=== PATIENT | male | born 1980 | race Caucasian/White ===

== ENCOUNTER 2021-11-20 09:21 | Emergency (ER) | payer MEDICAID ==
[~2021-11-20] VITALS: Ht 182.9 cm; Wt 80.0 kg
[2021-11-20 09:27] VITALS: BP 143/89
[2021-11-20] MEDS ORDERED: HYDR-3972 PO (12:14)
== END 2021-11-20 12:37 | disposition home or self-care (01) ==
LOC: ER 09:21
DX: R22.41 Localized swelling, mass and lump, right lower limb (principal); S92.141D Displaced dome fracture of right talus, subsequent encounter for fracture with routine healing; Z98.890 Other specified postprocedural states; Z79.899 Other long term (current) drug therapy; V29.9XXD Motorcycle rider (driver) (passenger) injured in unspecified traffic accident, subsequent encounter
CPT/HCPCS: 29515; 73610; 99283

== ENCOUNTER 2024-04-21 14:20 | Inpatient (IN) | payer MEDICAID ==
[~2024-04-21] VITALS: Ht 182.9 cm; Wt 82.0 kg
[2024-04-21 15:20] LABS: BASOPHILS # (AUTO) 0.1 X10'3 (0-0.2); BASOPHILS % (AUTO) 0.7 % (0-1); EOSINOPHILS # (AUTO) 0.1 X10'3 (0-0.9); EOSINOPHILS % (AUTO) 0.6 % (0-6); HEMATOCRIT 47.7 % (42.0-52.0); HEMOGLOBIN 15.9 g/dl (14.0-17.9); LYMPHOCYTES # (AUTO) 1.7 X10'3 (1.1-4.8); LYMPHOCYTES % (AUTO) 12.6 % (21-51); MEAN CORPUSCULAR HEMOGLOBIN 28.2 PG (27.0-31.0); MEAN CORPUSCULAR HGB CONC 33.4 g/dL (33.0-36.5); MEAN CORPUSCULAR VOLUME 84.5 FL (78-98); MEAN PLATELET VOLUME 7.4 FL (7.4-10.4); MONOCYTES # (AUTO) 0.8 X10'3 (0-0.9); MONOCYTES % (AUTO) 5.7 % (2-12); NEUTROPHILS % (AUTO) 80.4 % (42-75); PLATELET COUNT 460 X10'3 (140-440); RED BLOOD COUNT 5.64 X10'6 (4.70-6.10); RED CELL DISTRIBUTION WIDTH 13.9 % (11.5-14.5); WHITE BLOOD COUNT 13.7 X10'3 (4.5-11.0)
[2024-04-21 15:38] LABS: ALANINE AMINOTRANSFERASE 33 U/L (12-78); ALBUMIN 3.7 G/DL (3.4-5.0); ALBUMIN/GLOBULIN RATIO 0.9 (1.1-1.5); ALKALINE PHOSPHATASE 112 IU/L (46-116); ANION GAP 9 (8-16); ASPARTATE AMINO TRANSFERASE 16 U/L (10-37); BILIRUBIN,TOTAL 0.5 MG/DL (0.1-1.0); BLOOD UREA NITROGEN 18 MG/DL (7-18); CALCIUM 9.2 MG/DL (8.5-10.1); CHLORIDE 101 MMOL/L (99-107); CREATININE 1.06 MG/DL (0.60-1.10); GLUCOSE 120 MG/DL (70-104); POTASSIUM 3.4 MMOL/L (3.5-5.1); SODIUM 136 MMOL/L (135-145); TOTAL CARBON DIOXIDE 26.4 MMOL/L (24-32); TOTAL PROTEIN 7.7 G/DL (6.4-8.2); eCRCL 101 ML/MIN; eGFR 77 ML/MIN
[2024-04-21 15:42] LABS: LIPASE 39 U/L (16-77)
[2024-04-21] MEDS: ondansetron/PF 4mg/2ml inj IV ONE (18:16)
[2024-04-21] MEDS: HYDROcodone/acetaminophen 10/325mg tab PO ONE (18:16)
[2024-04-21] MEDS: morphine 4 MG/ML inj SYRINge IV ONE (18:34)
[2024-04-21] MEDS: piperacillin/tazo 4.5gm/100ml 100 ML IV SCH (19:44)
[2024-04-21] MEDS ORDERED: potassium Cl 20 mEq SR tablet PO PRN ×2 (21:25)
[2024-04-21] MEDS ORDERED: magnesium Cl slow-release 64mg tablet PO PRN (21:25)
[2024-04-21] MEDS ORDERED: ondansetron/PF 4mg/2ml inj IV PRN (21:25)
[2024-04-21] MEDS ORDERED: magnesium sulf-water 4G/100mL 100 ML IV PRN (21:25)
[2024-04-21] MEDS ORDERED: potassium Cl 40MEQ/1/2NS 520ml 520 ML IV PRN (21:25)
[2024-04-21] MEDS ORDERED: magnesium sulf-water 2g/50mL 50 ML IV PRN (21:25)
[2024-04-21] MEDS: pantoprazole 40 MG vial IV ONE (22:01)
[2024-04-21] MEDS: normal saline 1000ml 1,000 ML IV SCH (22:01)
[2024-04-21] MEDS: ketorolac tromethamine 15mg/ml inj. IV ONE (22:01)
[2024-04-21 22:53] VITALS: BP 108/86; PULSE 63; RESP 16; TEMP 97.9; O2SAT 100
[2024-04-21] MEDS ORDERED: NO HOME MEDS (23:54)
[2024-04-22] VITALS (17 sets, daily range): BP systolic 110–142; BP diastolic 77–93; PULSE 68–93; RESP 14–23; TEMP 97.6–98.4; O2SAT 95–100
[2024-04-22] MEDS: piperacillin/tazo 3.375gm/50ml 50 ML IV SCH (06:10)
[2024-04-22 07:16] LABS: BASOPHILS # (AUTO) 0.1 X10'3 (0-0.2); BASOPHILS % (AUTO) 0.5 % (0-1); EOSINOPHILS # (AUTO) 0.2 X10'3 (0-0.9); EOSINOPHILS % (AUTO) 1.4 % (0-6); HEMATOCRIT 47.1 % (42.0-52.0); HEMOGLOBIN 15.7 g/dl (14.0-17.9); LYMPHOCYTES # (AUTO) 2.4 X10'3 (1.1-4.8); LYMPHOCYTES % (AUTO) 20.8 % (21-51); MEAN CORPUSCULAR HEMOGLOBIN 28.6 PG (27.0-31.0); MEAN CORPUSCULAR HGB CONC 33.4 g/dL (33.0-36.5); MEAN CORPUSCULAR VOLUME 85.6 FL (78-98); MEAN PLATELET VOLUME 7.5 FL (7.4-10.4); MONOCYTES # (AUTO) 1.2 X10'3 (0-0.9); MONOCYTES % (AUTO) 10.1 % (2-12); NEUTROPHILS # (AUTO) 7.8 X10'3 (1.8-7.7); NEUTROPHILS % (AUTO) 67.2 % (42-75); PLATELET COUNT 398 X10'3 (140-440); RED BLOOD COUNT 5.51 X10'6 (4.70-6.10); WHITE BLOOD COUNT 11.6 X10'3 (4.5-11.0)
[2024-04-22 07:30] LABS: ALANINE AMINOTRANSFERASE 82 U/L (12-78); ALBUMIN 3.1 G/DL (3.4-5.0); ALBUMIN/GLOBULIN RATIO 0.9 (1.1-1.5); ALKALINE PHOSPHATASE 117 IU/L (46-116); ANION GAP 5 (8-16); ASPARTATE AMINO TRANSFERASE 70 U/L (10-37); BILIRUBIN,TOTAL 1.1 MG/DL (0.1-1.0); BLOOD UREA NITROGEN 13 MG/DL (7-18); BUN/CREATININE RATIO 11.1 (10.0-20.0); CALCIUM 8.4 MG/DL (8.5-10.1); CHLORIDE 102 MMOL/L (99-107); CREATININE 1.17 MG/DL (0.60-1.10); GLUCOSE 96 MG/DL (70-104); MAGNESIUM 2.1 MG/DL (1.5-2.4); PHOSPHORUS 3.5 MG/DL (2.3-4.5); POTASSIUM 3.9 MMOL/L (3.5-5.1); SODIUM 137 MMOL/L (135-145); TOTAL CARBON DIOXIDE 30.5 MMOL/L (24-32); TOTAL PROTEIN 6.7 G/DL (6.4-8.2); eCRCL 91 ML/MIN; eGFR 69 ML/MIN
[2024-04-22 07:37] LABS: APTT 28 SECONDS (22-32); INR 1.1 INR; PROTHROMBIN TIME 11.1 SECONDS (9.0-12.0)
[2024-04-22] MEDS: K and/or MAG REPLACEMENT MC SCH (08:00)
[2024-04-22] MEDS: pantoprazole 40 MG vial IV SCH (08:22)
[2024-04-22] MEDS: acetaminophen 1,000mg/100ml IV 100 ML IV PRN (08:32)
[2024-04-22] MEDS ORDERED: morphine 2 MG/ML inj. syringe IV PRN (16:25)
[2024-04-22] MEDS ORDERED: proCHLORperazine 10 MG/2 ml inj IV PRN (16:25)
[2024-04-22] MEDS ORDERED: meperidine/PF 25mg/ml syringe IV PRN ×3 (16:25)
[2024-04-22] MEDS ORDERED: morphine 4 MG/ML inj SYRINge IV PRN (16:25)
[2024-04-22] MEDS ORDERED: ondansetron/PF 4mg/2ml inj IV PRN (16:25)
[2024-04-22] MEDS ORDERED: sevoflurane 250ml liquid IH ONE (16:43)
[2024-04-22] MEDS ORDERED: fentaNYL /PF 50mcg/ml 5ml ampule ONE (16:44)
[2024-04-22] MEDS ORDERED: midazolam 1 mg/ML 2ml injection ONE (16:44)
[2024-04-22] MEDS ORDERED: propofol inj 20 ML IV ONE (16:47)
[2024-04-22] MEDS ORDERED: rocuronium 10mg/ml inj IV ONE (16:47)
[2024-04-22] MEDS: BUPIVAcaine 2.5mg/ml inj 50ml vial (contains preservative) SQ ONE (17:14)
[2024-04-22] MEDS ORDERED: dexamethasone sod phosphate 4mg/ml inj. ONE (17:39)
[2024-04-22] MEDS ORDERED: ondansetron/PF 4mg/2ml inj ONE (17:40)
[2024-04-22] MEDS ORDERED: glycopyrrolate 0.2mg/ml inj ONE (17:56)
[2024-04-22] MEDS ORDERED: neostigmine methylsulfate 1 MG/ML 10ml vial ONE (17:56)
[2024-04-22] MEDS: ketorolac trometh. 30mg/ml inj. IV ONE (20:13)
[2024-04-22] MEDS: BUPIVAcaine 2.5mg/ml inj 50ml vial (contains preservative) ONE (21:00)
[2024-04-22] MEDS: ringers solution, lacted 1,000 ML IV SCH (21:00)
[2024-04-23 06:00] VITALS: BP 105/69; PULSE 78; RESP 16; TEMP 97.3; O2SAT 99
[2024-04-23 06:19] LABS: BASOPHILS % (AUTO) 0.3 % (0-1); EOSINOPHILS % (AUTO) 0 % (0-6); HEMATOCRIT 44.7 % (42.0-52.0); HEMOGLOBIN 14.5 g/dl (14.0-17.9); LYMPHOCYTES # (AUTO) 1.3 X10'3 (1.1-4.8); LYMPHOCYTES % (AUTO) 10.6 % (21-51); MEAN CORPUSCULAR HEMOGLOBIN 27.8 PG (27.0-31.0); MEAN CORPUSCULAR HGB CONC 32.5 g/dL (33.0-36.5); MEAN CORPUSCULAR VOLUME 85.6 FL (78-98); MEAN PLATELET VOLUME 7.6 FL (7.4-10.4); MONOCYTES # (AUTO) 0.7 X10'3 (0-0.9); MONOCYTES % (AUTO) 5.6 % (2-12); NEUTROPHILS % (AUTO) 83.5 % (42-75); PLATELET COUNT 454 X10'3 (140-440); RED BLOOD COUNT 5.22 X10'6 (4.70-6.10); RED CELL DISTRIBUTION WIDTH 13.8 % (11.5-14.5); WHITE BLOOD COUNT 11.9 X10'3 (4.5-11.0)
[2024-04-23 06:27] LABS: APTT 28 SECONDS (22-32); INR 1.1 INR; PROTHROMBIN TIME 11.4 SECONDS (9.0-12.0)
[2024-04-23 06:30] LABS: ALANINE AMINOTRANSFERASE 65 U/L (12-78); ALBUMIN 2.9 G/DL (3.4-5.0); ALBUMIN/GLOBULIN RATIO 0.8 (1.1-1.5); ALKALINE PHOSPHATASE 111 IU/L (46-116); ANION GAP 4 (8-16); ASPARTATE AMINO TRANSFERASE 33 U/L (10-37); BILIRUBIN,TOTAL 0.7 MG/DL (0.1-1.0); BLOOD UREA NITROGEN 8 MG/DL (7-18); BUN/CREATININE RATIO 7.4 (10.0-20.0); CALCIUM 8.3 MG/DL (8.5-10.1); CHLORIDE 103 MMOL/L (99-107); CREATININE 1.08 MG/DL (0.60-1.10); GLUCOSE 110 MG/DL (70-104); PHOSPHORUS 3.2 MG/DL (2.3-4.5); POTASSIUM 4.4 MMOL/L (3.5-5.1); SODIUM 137 MMOL/L (135-145); TOTAL PROTEIN 6.7 G/DL (6.4-8.2); eCRCL 99 ML/MIN; eGFR 75 ML/MIN
[2024-04-23 07:49] VITALS: BP 99/58; PULSE 87; RESP 15; TEMP 98.2; O2SAT 97
[2024-04-23 08:00] VITALS: RESP 16; O2SAT 98
[2024-04-23 10:00] VITALS: BP 119/68; PULSE 89; RESP 18; TEMP 98.7; O2SAT 99
[2024-04-23] MEDS ORDERED: HYDR-3972 PO (14:05)
[2024-04-23] MEDS ORDERED: LACT1CAP76 PO (14:05)
[2024-04-23] MEDS ORDERED: AMOX-580 PO (14:05)
== END 2024-04-23 17:11 | disposition home or self-care (01) | DRG 263 ==
LOC: ER 14:21 → ED HOLD 21:26 → ORTHO 4S 22:40 → SUR 3N 04-22 19:00
PROVIDERS: ADMIT Surgery; ATTEND Family Medicine
PROC: 0FT44ZZ Resection of Gallbladder, Percutaneous Endoscopic Approach (ICD-10-PCS; principal; 2024-04-23)
PROC: 0DNU4ZZ Release Omentum, Percutaneous Endoscopic Approach (ICD-10-PCS; 2024-04-23)
DX: K80.00 Calculus of gallbladder with acute cholecystitis without obstruction (principal); N17.0 Acute kidney failure with tubular necrosis; K82.8 Other specified diseases of gallbladder; D72.829 Elevated white blood cell count, unspecified; K66.0 Peritoneal adhesions (postprocedural) (postinfection); F12.10 Cannabis abuse, uncomplicated
CPT/HCPCS: 36415; 76700; 80053; 82948; 83690; 83735; 84100; 85025; 85610; 85730; 87081; 99291; A4215; A4618; A6402; A7000; G0378; J0131; J1100; J1885; J2250; J2270; J2405; J2470; J2543; J2704; J2710; J3010; J3490; J7030; J7040; J7120